=== PATIENT | male | born 1980 | race Caucasian/White ===

== ENCOUNTER 2022-06-27 14:23 | Emergency (ER) | payer OTHER ==
[~2022-06-27] VITALS: Ht 185.4 cm; Wt 75.0 kg
[2022-06-27 15:24] VITALS: BP 154/81
== END 2022-06-27 16:30 | disposition home or self-care (01) ==
LOC: EMS 14:26
DX: R46.89 Other symptoms and signs involving appearance and behavior (principal)
CPT/HCPCS: 99281